=== PATIENT | male | born 1975 | race African-American/Black ===

== ENCOUNTER 2016-08-07 10:06 | Emergency (ER) | payer OTHER ==
[~2016-08-07] VITALS: Ht 175.3 cm; Wt 69.9 kg
[2016-08-07] MEDS ORDERED: BACTRIM,SEPT1 TABLET PO (11:28)
[2016-08-07] MEDS ORDERED: KEFLEX500 MG PO (11:28)
[2016-08-07 11:38] VITALS: BP 148/82
== END 2016-08-07 11:39 | disposition home or self-care (01) ==
LOC: EME 10:06 → RME 10:06
DX: T33.531A Superficial frostbite of right finger(s), initial encounter (principal); W93.2XXA Prolonged exposure in deep freeze unit or refrigerator, initial encounter; Y99.0 Civilian activity done for income or pay
CPT/HCPCS: 99281; 99283

== ENCOUNTER 2016-10-13 09:10 | Emergency (ER) | payer OTHER ==
[~2016-10-13] VITALS: Ht 177.8 cm; Wt 66.3 kg
[~2016-10-13 09:10] MED LIST: BACTRIM,SEPT1 TABLET PO; KEFLEX500 MG PO
[2016-10-13] MEDS ORDERED: GABAPENTIN300 MG PO (10:29)
[2016-10-13 10:47] VITALS: BP 116/96
== END 2016-10-13 10:48 | disposition home or self-care (01) ==
LOC: EME 09:10
DX: T33.522D Superficial frostbite of left hand, subsequent encounter (principal); M79.2 Neuralgia and neuritis, unspecified; X31.XXXD Exposure to excessive natural cold, subsequent encounter
CPT/HCPCS: 99281; 99284